=== PATIENT | male | born 1955 ===

== ENCOUNTER → 2020-01-09 | Outpatient (CLI) | payer MEDICARE ==
[~2020-01-09] MED LIST: TOBR.3OPO OP
== END | disposition home or self-care (01) ==
LOC: LAB SHORT 12:12 → PLD 12:12
DX: C44.619 Basal cell carcinoma of skin of left upper limb, including shoulder (principal)
CPT/HCPCS: 88305

== ENCOUNTER 2021-11-17 09:08 | Day surgery (SDC) | payer OTHER ==
[~2021-11-17] VITALS: Ht 185.4 cm; Wt 93.2 kg
[2021-11-17] MEDS ORDERED: GLIM4 (09:39)
[2021-11-17] MEDS ORDERED: LOVA40 (09:39)
[2021-11-17] MEDS ORDERED: LOSARTAN POTASS50 M1 (09:39)
[2021-11-17] MEDS ORDERED: INSULANI (09:39)
[2021-11-17] MEDS ORDERED: METF500 (09:39)
--- NOTE | 2021-11-17 12:08 | NUR ---
11/17/21 1208 Tammie Mckoy 0.15ML OF EPI 1MG/ML ADDED TO BUPIVICAINE 0.5% TO CREATE A SOLUTION OF BUPIVICAINE 0.5% WITH EPI 1:200,000.
== END 2021-11-17 13:20 | disposition home or self-care (01) ==
LOC: ORSCSDS 09:08
PROVIDERS: Orthopaedic Surgery
PROC: 0LN80ZZ Release Left Hand Tendon, Open Approach (ICD-10-PCS; principal; 2021-11-17 10:30)
PROC: 0JNK0ZZ Release Left Hand Subcutaneous Tissue and Fascia, Open Approach (ICD-10-PCS; principal; 2021-11-17 10:30)
DX: M72.0 Palmar fascial fibromatosis [Dupuytren] (principal); I10 Essential (primary) hypertension; Z87.891 Personal history of nicotine dependence; E11.9 Type 2 diabetes mellitus without complications; E78.00 Pure hypercholesterolemia, unspecified; Z79.4 Long term (current) use of insulin; Z79.899 Other long term (current) drug therapy; Z79.82 Long term (current) use of aspirin
CPT/HCPCS: 82947; 88304; J0171; J0690; J1100; J1885; J2250; J2405; J2704; J3010; J7120

== ENCOUNTER 2022-06-22 08:11 | Day surgery (SDC) | payer OTHER ==
[~2022-06-22] VITALS: Ht 185.4 cm; Wt 94.0 kg
[~2022-06-22 08:11] MED LIST changes: +GLIM4; +INSULANI; +LOSARTAN POTASS50 M1; +LOVA40; +METF500; +OZEMPIC2 MG/0.75 SQ
--- NOTE | 2022-06-22 08:49 | NUR ---
06/22/22 0849 Annika Ruffin PT DENIES PCN ALEBRIDGET AND HAD ANCEF BEFORE WITHOUT INCIDENT.
--- NOTE | 2022-06-22 10:31 | NUR ---
06/22/22 1031 Tammie Mckoy 0.15ML OF EPI 1MG/ML ADDED TO 30MLS ROPIVICAINE 0.5% TO CREATE A LOCAL SOLUTION OF ROPIVICAINE 0.5% WITH EPI 1:200,000.
== END 2022-06-22 12:15 | disposition home or self-care (01) ==
LOC: ORSCSDS 08:11
PROVIDERS: Orthopaedic Surgery
PROC: 0JNJ0ZZ Release Right Hand Subcutaneous Tissue and Fascia, Open Approach (ICD-10-PCS; principal; 2022-06-22 09:30)
DX: M72.0 Palmar fascial fibromatosis [Dupuytren] (principal); I10 Essential (primary) hypertension; E78.5 Hyperlipidemia, unspecified; Z87.891 Personal history of nicotine dependence; E11.9 Type 2 diabetes mellitus without complications; Z79.4 Long term (current) use of insulin; Z79.899 Other long term (current) drug therapy; Z79.84 Long term (current) use of oral hypoglycemic drugs
CPT/HCPCS: 82947; 88304; J0171; J0690; J1100; J1885; J2250; J2405; J2704; J2795; J3010; J7120